=== PATIENT | female | born 1975 | race African-American/Black ===

== ENCOUNTER 2016-10-06 10:49 | Emergency (ER) | payer SELFPAY ==
[~2016-10-06] VITALS: Ht 154.9 cm; Wt 50.1 kg
[2016-10-06 10:51] VITALS: BP 99/61
[2016-10-06 11:50] LABS: ASPARTATE AMINO TRANSFERASE 14 U/L (15-37); BLOOD UREA NITROGEN 17 mg/dL (7-18)
== END 2016-10-06 15:44 | disposition home or self-care (01) ==
LOC: ED 12:52
DX: R10.84 Generalized abdominal pain (principal); T80.89XA Other complications following infusion, transfusion and therapeutic injection, initial encounter
CPT/HCPCS: 36415; 74177; 76830; 80053; 81003; 83690; 84703; 85025; 85610; 85730; 99285